=== PATIENT | male | born 1990 | race African-American/Black ===

== ENCOUNTER 2024-05-06 14:39 | Emergency (ER) | payer SELFPAY ==
[2024-05-06 15:04] VITALS: BP 137/94; PULSE 94; RESP 18; TEMP 98; BMI 21.8
== END 2024-05-06 17:10 | disposition home or self-care (01) ==
LOC: JER 14:39
DX: R25.1 Tremor, unspecified (principal); R07.9 Chest pain, unspecified; Z63.79 Other stressful life events affecting family and household
CPT/HCPCS: 99282-25